=== PATIENT | female | born 1940 | race Caucasian/White ===

== ENCOUNTER 2019-05-23 06:35 | Day surgery (SDC) | payer MEDICARE, OTHER ==
[~2019-05-23] VITALS: Ht 152.4 cm; Wt 88.6 kg
[~2019-05-23 06:35] MED LIST: ASCO500 PO; ASPI81CH PO; CELE200 PO; COLPRO PO; Cordarone200 MG PO; DIGO.125 PO; DIGO.25; DILT120ERA PO; FERR325 PO; FOLI1 PO; FURO40 PO; LEVSOD50; LEVSOD75 PO; LISI20 PO; LORA10 PO; METO50 PO; METO50ER PO; N-ACETYL-L-CYS600 MG PO; NEBI10; NEBI5 PO; POTA10T PO; Prinivil10 MG; Probenecid-Col1 EACH PO; ROSU5 PO; SIMBRINZA 1%-0.28 ML; SIMBRINZA 1%-0.28 ML OP; SPIR25; SPIR25 PO; Synthroid50 MCG PO; TORSE20; TORSE20 PO; TRAV.004OP BOTHEYES; Travatan Z5 ML BOTHEYES; WARF3 PO; WARF4 PO; WARF5; ZESTRIL PO
[2019-05-23] MEDS ORDERED: AMLO10 PO (07:11)
[2019-05-23] MEDS ORDERED: LISI20 PO (07:11)
[2019-05-23] MEDS ORDERED: ALLO100 (07:12)
[2019-05-23] MEDS ORDERED: Lopressor 50 mg50 MG PO (07:12)
[2019-05-23] MEDS ORDERED: Celebrex200 MG PO (07:13)
--- NOTE | 2019-05-23 08:49 | NUR ---
CANCELED CARDIOVERSION DR. CRAMER IN TO SEE PT FOR PROCEDURE. DR. CRAMER CANCELED PROCEDURE-STATING: 'INR WAS LOW." IV DC'D WITH CANULA IN TACT. DISCHARGE PAPERWORK GONE OVER WITH PT AND FAMILY. PT AND FAMILY VERBALLY STATE THE UNDERSTANDING OF THE DISCHARGE EDCUATION AND DENIED ANY QUESTIONS AT THIS TIME. PT WHEELED OUT BY FAMILY. FOLLOW-UP APPOINTMENT SCHEDULED.
[2019-06-06] MEDS ORDERED: ATOR20 PO (14:55)
[2019-06-06] MEDS ORDERED: ATOR10 (14:55)
[2019-06-06] MEDS ORDERED: VITAMIN C500 M1 PO (14:56)
== END 2019-05-23 22:46 | disposition home or self-care (01) ==
LOC: MHTC 06:35
DX: I48.91 Unspecified atrial fibrillation (principal); R06.00 Dyspnea, unspecified; I38 Endocarditis, valve unspecified; R79.1 Abnormal coagulation profile; I10 Essential (primary) hypertension; E78.5 Hyperlipidemia, unspecified; E03.9 Hypothyroidism, unspecified; D50.9 Iron deficiency anemia, unspecified; Z53.09 Procedure and treatment not carried out because of other contraindication; Z88.0 Allergy status to penicillin; Z88.5 Allergy status to narcotic agent; Z95.2 Presence of prosthetic heart valve; Z79.899 Other long term (current) drug therapy; Z79.01 Long term (current) use of anticoagulants; Z95.0 Presence of cardiac pacemaker
CPT/HCPCS: 93005; 93010; J2250; J3010; J7030

== ENCOUNTER 2019-06-07 05:46 | Day surgery (SDC) | payer MEDICARE, OTHER ==
[~2019-06-07] VITALS: Ht 152.4 cm; Wt 88.6 kg
[~2019-06-07 05:46] MED LIST changes: +ALLO100; +AMLO10 PO; +ATOR10; +ATOR20 PO; +Celebrex200 MG PO; +Lopressor 50 mg50 MG PO; +VITAMIN C500 M1 PO
--- NOTE | 2019-06-07 09:11 | NUR ---
Discharge Pt remained A&Ox3 and denied any pain at this time. Post EKG complete. IV DC'D with canjennifer in tact. Discharge paperwork gone over with pt and family. Pt and family verbally stated the understanding of the discharge education and denied any questions at this time. pt wheeled out by family.
== END 2019-06-07 23:11 | disposition home or self-care (01) ==
LOC: MHTC 05:46
DX: I48.1 Persistent atrial fibrillation (principal); I10 Essential (primary) hypertension; E78.5 Hyperlipidemia, unspecified; E03.9 Hypothyroidism, unspecified; Z88.0 Allergy status to penicillin; Z88.5 Allergy status to narcotic agent; Z79.899 Other long term (current) drug therapy
CPT/HCPCS: 92960; 93005; 93010; 99152; J2250; J3010; J7030

== ENCOUNTER 2019-10-02 21:51 | Inpatient (IN) | payer MEDICARE, OTHER ==
[~2019-10-02] VITALS: Ht 154.9 cm; Wt 90.4 kg
[2019-10-02] MEDS ORDERED: ALLO100 (22:14)
[2019-10-02] MEDS ORDERED: LISI20 PO (22:15)
[2019-10-02] MEDS ORDERED: ATOR20 PO (22:15)
[2019-10-02] MEDS ORDERED: CELECOXIB200 MG PO (22:15)
[2019-10-02] MEDS ORDERED: EUTHYROX75 MC1 (22:15)
[2019-10-02] MEDS ORDERED: Travatan Z5 ML (22:15)
[2019-10-02] MEDS ORDERED: FUROSEMIDE40 MG PO (22:15)
[2019-10-02] MEDS ORDERED: WARF5 PO (22:15)
[2019-10-02 22:43] LABS: BASOPHILS ABSOLUTE AUTO 0.04 K/mm3 (0.00-0.23); BASOPHILS PERCENT AUTO 0 % (0-2); EOSINOPHILS ABSOLUTE AUTO 0.08 K/mm3 (0.00-0.68); EOSINOPHILS PERCENT AUTO 1 % (0-6); Hematocrit 27.2 % (33.0-51.0); Hemoglobin 8.5 g/dL (11.5-16.0); IMMATURE GRAN ABSOLUTE AUTO 0.09 K/mm3 (0.00-0.10); IMMATURE GRAN PERCENT AUTO 1 % (0-1); LYMPHOCYTES ABSOLUTE AUTO 1.61 K/mm3 (0.84-5.20); LYMPHOCYTES PERCENT AUTO 10 % (21-46); MONOCYTES ABSOLUTE AUTO 1.15 K/mm3 (0.16-1.47); MONOCYTES PERCENT AUTO 7 % (4-13); Mean Corpuscular HGB 35.1 pg (26.0-34.0); Mean Corpuscular HGB Conc 31.3 g/dL (31.5-36.5); Mean Corpuscular Volume 112 fL (80-100); Mean Platelet Volume 11.7 fL (9.1-12.4); NEUTROPHILS ABSOLUTE AUTO 13.65 K/mm3 (1.96-9.15); NEUTROPHILS PERCENT AUTO 82 % (41-73); Platelet Count 282 K/mm3 (150-400); RDW Coefficient Variation 16.4 % (11.7-14.2); RDW Standard Deviation 67.2 fL (35.1-46.3); Red Blood Cell Count 2.42 M/mm3 (3.80-5.20); White Blood Cell Count 16.62 K/mm3 (4.00-11.30)
[2019-10-02 22:56] LABS: Albumin, Blood 3.4 g/dL (3.4-5.0); Albumin/Globulin Ratio 0.7 (0.8-1.8); Bilirubin, Total 0.3 mg/dL (0.1-1.0); Bun/Creatinine Ratio 26.7 (12.0-20.0); Calcium, Blood 8.6 mg/dL (8.5-10.1); Creatinine, Blood 1.61 mg/dL (0.40-1.00); Globulin, Blood 4.6 g/dL (2.2-4.0); Potassium, Blood 4.3 mmol/L (3.5-5.5)
[2019-10-02 22:57] LABS: International Normalized Ratio 2.31; Prothrombin Time Results 23.6 Sec (9.7-11.5)
--- NOTE | 2019-10-03 01:32 | NUR ---
transfer report from Angela JOHNSON on female PT who has rt hip fx and rt middle lobe pneumonia. PT on coumadin for mitral valve replacement and has pacemeker. EKG showed paced rhythm. INR 2.31. DR seeing PT currently await admission.
[2019-10-03] MEDS ORDERED: METO25 PO (02:41)
[2019-10-03] MEDS ORDERED: ASCO500 PO (02:43)
[2019-10-03] MEDS ORDERED: Travatan Z5 ML RIGHTEYE (02:53)
[2019-10-03] MEDS ORDERED: SIMBRINZA 1%-0.28 ML RIGHTEYE (02:55)
[2019-10-03 05:04] LABS: Hematocrit 24.1 % (33.0-51.0); Hemoglobin 7.6 g/dL (11.5-16.0); Mean Corpuscular HGB 35.2 pg (26.0-34.0); Mean Corpuscular HGB Conc 31.5 g/dL (31.5-36.5); Mean Corpuscular Volume 112 fL (80-100); Mean Platelet Volume 11.3 fL (9.1-12.4); Platelet Count 245 K/mm3 (150-400); RDW Coefficient Variation 16.3 % (11.7-14.2); RDW Standard Deviation 66.6 fL (35.1-46.3); Red Blood Cell Count 2.16 M/mm3 (3.80-5.20); White Blood Cell Count 17.68 K/mm3 (4.00-11.30)
--- NOTE | 2019-10-03 05:15 | NUR ---
PT with cardiac hx, orthopedic hx, fell at home rt hip fx, ortho consult DR Hensley called but no answering service or paging service. Spouse & DTR seem to think the DRs spoke in ER. Will call when office open. PT has hx of MARILU with no home cpap or oxygen. Current rt middle lobe pneumonia. Resp panel sent, Sputum culture pending. 1 l o2 to keep sats greater than 90%. Spouse rooming in supportive. Complex medical hx with pacemaker and hx DVT rt le. Meds verified with PT and Family. Continues on bedrest with vilchis placed in ER. Full code status verified.
[2019-10-03 05:18] LABS: International Normalized Ratio 2.25
[2019-10-03 05:46] LABS: Albumin/Globulin Ratio 0.7 (0.8-1.8); Bilirubin, Total 0.3 mg/dL (0.1-1.0); Bun/Creatinine Ratio 26.6 (12.0-20.0); Calcium, Blood 8.1 mg/dL (8.5-10.1); Creatinine, Blood 1.43 mg/dL (0.40-1.00); Globulin, Blood 4.3 g/dL (2.2-4.0); Potassium, Blood 4.7 mmol/L (3.5-5.5); Total Protein, Blood 7.3 g/dL (6.4-8.2)
[2019-10-03 06:22] LABS: Adenovirus Not Detected (NOT DETECT); Bordetella pertussis Not Detected (NOT DETECT); Chlamydophila pneumoniae Not Detected (NOT DETECT); Coronavirus 229E Not Detected (NOT DETECT); Coronavirus HKU1 Not Detected (NOT DETECT); Coronavirus NL63 Not Detected (NOT DETECT); Coronavirus OC43 Not Detected (NOT DETECT); Human Metapneumovirus Not Detected (NOT DETECT); Human Rhinovirus/Enterovirus Not Detected (NOT DETECT); Influenza A Not Detected (NOT DETECT); Influenza A/2009-H1 Not Detected (NOT DETECT); Influenza A/H1 Not Detected (NOT DETECT); Influenza A/H3 Not Detected (NOT DETECT); Influenza B Not Detected (NOT DETECT); Mycoplasma pneumoniae Not Detected (NOT DETECT); Parainfluenza Virus 1 Not Detected (NOT DETECT); Parainfluenza Virus 2 Not Detected (NOT DETECT); Parainfluenza Virus 3 Not Detected (NOT DETECT); Parainfluenza Virus 4 Not Detected (NOT DETECT); Respiratory Syncytial Virus Not Detected (NOT DETECT)
--- NOTE | 2019-10-03 08:23 | NUR ---
patient gave permission to give care 10/03/19 0700
[2019-10-03 09:44] LABS: Percent Saturation 13.4 % (15.0-50.0)
[2019-10-03 10:57] LABS: Source, Urine Catheter
[2019-10-03 11:15] LABS: Appearance, Urine Clear (Clear); Bilirubin, Urine Neg (Neg); Blood, Urine Neg (Neg); Color, Urine Yellow (P-Yellow); Glucose Qualitative, Urine Neg (Neg); Ketones, Urine Neg (Neg); Leukocyte Esterase, Urine 2+ (Neg); Nitrite, Urine Neg (Neg); Protein, Urine Neg (Neg); Urobilinogen, Urine NORM (Normal)
[2019-10-03 11:23] LABS: Red Blood Cells, Urine 0-2 /hpf (0-2); White Blood Cells, Urine 25-50 /hpf (0-5)
[2019-10-03 11:24] LABS: Bacteria Few /hpf; Granular Casts 0-2 /lpf (0); Mucus Light (0-Heavy); Squamous Epithelial Cells Few /hpf (Few)
--- NOTE | 2019-10-03 15:11 | NUR ---
SHIFT SUMMARY PT AWAKE THIS AM, DURING SHIFT REPORT. FAMILY IN . PT ADMITTED FOR R HIP FX DURING THE NIGHT D/T FALL AT HOME. BRUISING TO BACK OF R ARM WELL. PER REPORT, PT ALSO WITH RML PNM. SPUTUM CX OBTAINED AND SENT AFTER REPORT. PT REQUESTED PAIN MEDICATION AT START OF SHIFT WELL. DR GUTIERREZ NOTIFIED; TRAMADOL ORDERED AND GIVEN PER EMAR. ORTHO CONSULT CALLED TO DR SHELL AFTER OFFICE OPEN, AT 0840. DOMINGUEZ CATH PLACED IN ER; UA OBTAINED AND SENT FOR PROTOCOL. DR GUTIERREZ IN TO SEE PT; NEW ORDERS RECEIVED. 1 UNIT PRBC'S TRANFUSED PER ORDERS. PT TOLERATED WELL. ATTEMPTED TO USE BEDPAN FOR BM; UNSUCCESSFUL, "JUST GAS". LOTS OF FAMILY IN AND OUT OF TODAY. PT WAITING FOR DR SHELL. CALL LT IN REACH.
--- NOTE | 2019-10-03 20:03 | NUR ---
CARLOS IS LAYING IN BED, LISTENING TO MUSIC AND TALKING WITH FRIEND. STATES PAIN IS AT 4/10 AT THIS TIME. STATES HIGHEST IT GETS IS 6/10, 4 IS TOLERABLE FOR HER. DENIES ANY NEED FOR PAIN MEDS AT THIS TIME. CATHETER PATENT AND DRAINING. LUNG SOUNDS HAVE SOME CRACKLES ON THE RIGHT SIDE. COUGH IS NON-PRODUCTIVE. ENCOURAGE HER TO COUGH AND DEEP BREATH. REMINDED HER TO CALL IF SHE NEEDS ANYTHING OR IF SHE IS IN PAIN. CALL LIGHT IN REACH.
[2019-10-04 02:01] LABS: International Normalized Ratio 2.42; Prothrombin Time Results 24.6 Sec (9.7-11.5)
--- NOTE | 2019-10-04 05:09 | NUR ---
SHIFT SUMMARY: CARLOS HAS HAD A GOOD NIGHT, SLEPT OFF AND ON THROUGHOUT THE SHIFT. PAIN HAS REMAINED AT A 4/10 WITH USE OF ULTRAM. CATHETER HAS REMAINED PATENT AND DRAINING. IV ANTIBOTICS GIVEN WITH NO PROBLEMS. NO NUMBNESS OR TINGLING NOTED, PULSES ARE ALL GOOD. SHE STILL CONTINUES TO HAVE CRACKLES IN THE RIGHT SIDE, AND A COUGH THAT IS NON-PRODUCTIVE. ENCOURAGE COUGH AND DEEP BREATHING. VS WNL. NO ACUTE CHANGES THIS SHIFT.
[2019-10-04 08:47] LABS: BASOPHILS ABSOLUTE AUTO 0.03 K/mm3 (0.00-0.23); BASOPHILS PERCENT AUTO 0 % (0-2); EOSINOPHILS ABSOLUTE AUTO 0.04 K/mm3 (0.00-0.68); EOSINOPHILS PERCENT AUTO 0 % (0-6); Hematocrit 26.5 % (33.0-51.0); Hemoglobin 8.5 g/dL (11.5-16.0); IMMATURE GRAN ABSOLUTE AUTO 0.31 K/mm3 (0.00-0.10); IMMATURE GRAN PERCENT AUTO 2 % (0-1); LYMPHOCYTES ABSOLUTE AUTO 1.36 K/mm3 (0.84-5.20); LYMPHOCYTES PERCENT AUTO 10 % (21-46); MONOCYTES ABSOLUTE AUTO 1.09 K/mm3 (0.16-1.47); MONOCYTES PERCENT AUTO 8 % (4-13); Mean Corpuscular HGB 33.5 pg (26.0-34.0); Mean Corpuscular HGB Conc 32.1 g/dL (31.5-36.5); NEUTROPHILS PERCENT AUTO 80 % (41-73); NRBC ABSOLUTE 0.02 K/mm3 (0.00-0.02); NRBC Auto 0.1 /100 WBC (0.0-0.2); Platelet Count 256 K/mm3 (150-400); RDW Standard Deviation 72.3 fL (35.1-46.3); Red Blood Cell Count 2.54 M/mm3 (3.80-5.20); White Blood Cell Count 14.33 K/mm3 (4.00-11.30)
[2019-10-04 08:51] LABS: Mean Corpuscular Volume 104 fL (80-100)
[2019-10-04 09:08] LABS: Bun/Creatinine Ratio 20.6 (12.0-20.0); Calcium, Blood 8.4 mg/dL (8.5-10.1); Creatinine, Blood 1.55 mg/dL (0.40-1.00); Potassium, Blood 4.2 mmol/L (3.5-5.5)
--- NOTE | 2019-10-04 18:54 | NUR ---
ALERT. ORIENTED. SURGERY FOR TOMORROW, SO NPO AFTER MIDNITE. MEDICATED ONCE FOR PAIN. DOMINGUEZ DRAINING. NO ACUTE CHANGES. WCTM
[2019-10-05 02:02] LABS: BASOPHILS ABSOLUTE AUTO 0.05 K/mm3 (0.00-0.23); BASOPHILS PERCENT AUTO 0 % (0-2); EOSINOPHILS ABSOLUTE AUTO 0.09 K/mm3 (0.00-0.68); EOSINOPHILS PERCENT AUTO 1 % (0-6); Hematocrit 25.8 % (33.0-51.0); Hemoglobin 8.6 g/dL (11.5-16.0); IMMATURE GRAN ABSOLUTE AUTO 0.62 K/mm3 (0.00-0.10); IMMATURE GRAN PERCENT AUTO 4 % (0-1); LYMPHOCYTES ABSOLUTE AUTO 1.56 K/mm3 (0.84-5.20); LYMPHOCYTES PERCENT AUTO 11 % (21-46); MONOCYTES PERCENT AUTO 8 % (4-13); Mean Corpuscular HGB 34.7 pg (26.0-34.0); Mean Corpuscular HGB Conc 33.3 g/dL (31.5-36.5); Mean Corpuscular Volume 104 fL (80-100); Mean Platelet Volume 11.3 fL (9.1-12.4); NEUTROPHILS PERCENT AUTO 76 % (41-73); NRBC ABSOLUTE 0.02 K/mm3 (0.00-0.02); NRBC Auto 0.1 /100 WBC (0.0-0.2); Platelet Count 270 K/mm3 (150-400); RDW Coefficient Variation 18.1 % (11.7-14.2); RDW Standard Deviation 69.6 fL (35.1-46.3); Red Blood Cell Count 2.48 M/mm3 (3.80-5.20); White Blood Cell Count 14.42 K/mm3 (4.00-11.30)
[2019-10-05 02:05] LABS: International Normalized Ratio 1.2; Prothrombin Time Results 12.7 Sec (9.7-11.5)
[2019-10-05 02:07] LABS: Bun/Creatinine Ratio 19.8 (12.0-20.0); Calcium, Blood 8.5 mg/dL (8.5-10.1); Creatinine, Blood 1.67 mg/dL (0.40-1.00); Potassium, Blood 3.9 mmol/L (3.5-5.5)
--- NOTE | 2019-10-05 05:04 | NUR ---
SHIFT SUMMARY ADMIT FOR RT HIP FX & PNEUMONIA. FULL CODE. HOPEFUL PLAN FOR ORIF TODAY W/DR KAPLAN. PT WAS NPO SINCE MIDNIGHT. VITAMIN K GIVEN YESTERDAY DUE TO INR OF 2.42. GOAL INR IS LESS THAN 1.5 FOR SURGERY TO PROCEED. A&O X4, RA, NON WT-BEARING. DOMINGUEZ IN PLACE. PACEMAKER INSTALLED. HEPARIN DOSE HELD FOR HOPEFUL SURGERY. HX: HTN, HYPERLIPIDEMIA, DVT, MITRAL VALVE REPLACED, CVA, HYPOTHYROID, DVT, AFIB. PT RESTED THROUGHOUT SHIFT, DENIED DISCOMFORT.
--- NOTE | 2019-10-05 11:26 | NUR ---
History, Chart, Medications and Allergies reviewed before start of procedure. Patient confirms NPO status and agrees with scheduled surgery.
--- NOTE | 2019-10-05 11:30 | NUR ---
Lungs clear T/O to Auscultation.
--- NOTE | 2019-10-05 15:18 | NUR ---
REPORT TO JAVIER MCDOWELL RN ON SECOND FLOOR. BELONGINGS TAKEN TO RM 214 BY MINO OLMSTEAD.
--- NOTE | 2019-10-05 16:34 | NUR ---
RECEIVED FROM PACU. PT ALERT AND ORIENTED. FOAM TAPE DRESSING X3 SITES TO RIGHT HIP AND THIGH. PT DENIES NUMBNESS OR TINGLING, WIGGLES TOES. TOES PINK AND WARM WITH IMMEDIATE CAP REFILL. PATIENT DENIES ANY PAIN AT THIS TIME. FAMILY AT BEDSIDE. BIOX 88% OXYGEN APPLIED AT 2 LITERS AND PATIENT INSTRUCTED ON TCDB
--- NOTE | 2019-10-05 17:50 | NUR ---
SUMMARY ULTRAM GIVEN FOR BACK PAIN, PT DENIES HIP PAIN. HIP DRESSINGS DRY AND INTACT. PT GERALD PO FOOD WITHOUT NAUSEA. MULTIPLE FAMILY AT BEDSIDE. PT CHEERFUL, COOPERATIVE
--- NOTE | 2019-10-05 18:08 | NUR ---
SUMMARY PT SLIGHTLY CONFUSED- BELIEVES I AM HER NEIGHBOR AND TELLS ME THERE IS A CAT IN HER ROOM. PT REORIENTS TO SURROUNDINGS, MULTIPLE FAMILY MEMBERS AT BEDSIDE
--- NOTE | 2019-10-05 20:11 | NUR ---
18 G IV TO LEFT HAND PATENT AND INFUSING. PT REPORTS IV WAS PLACED IN DAY SURGERY
[2019-10-06 04:49] LABS: BASOPHILS ABSOLUTE AUTO 0.04 K/mm3 (0.00-0.23); BASOPHILS PERCENT AUTO 0 % (0-2); EOSINOPHILS PERCENT AUTO 0 % (0-6); Hematocrit 24.9 % (33.0-51.0); Hemoglobin 8.1 g/dL (11.5-16.0); IMMATURE GRAN ABSOLUTE AUTO 0.42 K/mm3 (0.00-0.10); IMMATURE GRAN PERCENT AUTO 3 % (0-1); LYMPHOCYTES ABSOLUTE AUTO 0.89 K/mm3 (0.84-5.20); LYMPHOCYTES PERCENT AUTO 6 % (21-46); MONOCYTES PERCENT AUTO 6 % (4-13); Mean Corpuscular HGB 33.8 pg (26.0-34.0); Mean Corpuscular HGB Conc 32.5 g/dL (31.5-36.5); Mean Corpuscular Volume 104 fL (80-100); Mean Platelet Volume 11.6 fL (9.1-12.4); NEUTROPHILS ABSOLUTE AUTO 13.21 K/mm3 (1.96-9.15); NEUTROPHILS PERCENT AUTO 85 % (41-73); NRBC ABSOLUTE 0.02 K/mm3 (0.00-0.02); NRBC Auto 0.1 /100 WBC (0.0-0.2); Platelet Count 281 K/mm3 (150-400); RDW Coefficient Variation 17.1 % (11.7-14.2); RDW Standard Deviation 65.3 fL (35.1-46.3); White Blood Cell Count 15.56 K/mm3 (4.00-11.30)
--- NOTE | 2019-10-06 04:51 | NUR ---
SHIFT SUMMARY: CARLOS HAS BEEN RESTING INTERMITTENTLY DURING THE SHIFT. SHE REPORTS THAT THE PAIN IN HER HIP IS WELL CONTROLLED. SHE REPORTS THAT HER CHRONIC BACK PAIN IS CAUSING HER SOME DISCOMFORT AT THIS TIME. SHE HAS DENIED THE NEED FOR PAIN MEDICATION. SHE IS TOLERATING PO INTAKE WELL AT THIS TIME. IV PATENT, FLUIDS TKO. DRESSINGS TO HER RIGHT HIP C/D&I. DOMINGUEZ PATENT, DRAINING CLEAR YELLOW URINE. SHE IS ABLE TO MAKE HER NEEDS KNOWN. SHE IS LYING COMFORTABLY IN BED WITH THE CALL LIGHT IN REACH.
[2019-10-06 05:03] LABS: International Normalized Ratio 1.07; Prothrombin Time Results 11.4 Sec (9.7-11.5)
[2019-10-06 05:06] LABS: Bun/Creatinine Ratio 23.3 (12.0-20.0); Calcium, Blood 8.3 mg/dL (8.5-10.1); Creatinine, Blood 1.63 mg/dL (0.40-1.00); Potassium, Blood 4.2 mmol/L (3.5-5.5)
--- NOTE | 2019-10-06 15:25 | NUR ---
SHIFT SUMMARY PT A&OX3, PLEASANT & COOPERATIVE, FOLLOWS DIRECTIONS WELL. VSS, RA, I.S. & TCDB EXERCISES T/O SHIFT. POD1 R HIP PINNING, AQUACEL X2 CDI, CHANGED BY SURGEON, 1 PRESSURE DRESSING REMAINS - APPEAR CDI. PAIN MANAGED WITH TRAMADOL & TYLENOL. GERALD PO, DENIES N&V. AMB W/FWW & GB, 2 PP MAX ASSIST; PHYSICAL THERAPY GOT PT UP TO CHAIR, TO BSC & BACK TO BED. DOMINGUEZ PATENT & DRAINING YELLOW URINE, STAT LOCK ON, OFF FLOOR. BOWEL CARE COLACE, MIRALAX X2 GIVEN AND DULCOLAX AVAILABLE FOR BEDTIME FOR PT CONCERNS OF CONSTIPATION. WILL REPORT TO DILLON PFEIFFER RN.
[2019-10-07 04:51] LABS: BASOPHILS ABSOLUTE AUTO 0.03 K/mm3 (0.00-0.23); BASOPHILS PERCENT AUTO 0 % (0-2); EOSINOPHILS ABSOLUTE AUTO 0.07 K/mm3 (0.00-0.68); EOSINOPHILS PERCENT AUTO 1 % (0-6); Hemoglobin 7.4 g/dL (11.5-16.0); IMMATURE GRAN ABSOLUTE AUTO 0.75 K/mm3 (0.00-0.10); IMMATURE GRAN PERCENT AUTO 5 % (0-1); LYMPHOCYTES ABSOLUTE AUTO 1.86 K/mm3 (0.84-5.20); LYMPHOCYTES PERCENT AUTO 13 % (21-46); MONOCYTES ABSOLUTE AUTO 1.35 K/mm3 (0.16-1.47); MONOCYTES PERCENT AUTO 10 % (4-13); Mean Corpuscular HGB 33.3 pg (26.0-34.0); Mean Corpuscular HGB Conc 32.2 g/dL (31.5-36.5); Mean Corpuscular Volume 104 fL (80-100); Mean Platelet Volume 11.6 fL (9.1-12.4); NEUTROPHILS PERCENT AUTO 71 % (41-73); NRBC ABSOLUTE 0.07 K/mm3 (0.00-0.02); NRBC Auto 0.5 /100 WBC (0.0-0.2); Platelet Count 286 K/mm3 (150-400); RDW Coefficient Variation 16.9 % (11.7-14.2); RDW Standard Deviation 63.2 fL (35.1-46.3); Red Blood Cell Count 2.22 M/mm3 (3.80-5.20); White Blood Cell Count 13.86 K/mm3 (4.00-11.30)
[2019-10-07 05:04] LABS: International Normalized Ratio 1.15; Prothrombin Time Results 12.2 Sec (9.7-11.5)
[2019-10-07 05:13] LABS: Bun/Creatinine Ratio 27.8 (12.0-20.0); Calcium, Blood 8.3 mg/dL (8.5-10.1); Creatinine, Blood 1.94 mg/dL (0.40-1.00)
--- NOTE | 2019-10-07 06:39 | NUR ---
SHIFT SUMMARY: CARLOS HAS RESTED COMFORTABLY FOR MOST OF THE SHIFT. SHE REPORTS GOOD PAIN CONTROL WITH THE USE OF THE TRAMADOL. SHE IS TOLERATING PO INTAKE WELL. DOMINGUEZ PATENT, DRAINING CLEAR, YELLOW URINE. SHE IS ALERT AND ORIENTED. SHE ABLE TO MAKE HER NEEDS KNOWN. VSS. NO ACUTE CHANGES THIS SHIFT. HEMOGLOBIN THIS MORNING IS 7.4. DR. PRIETO NOTIFIED, ORDER GIVEN FOR ONE UNIT RBCs. NO N/V. SHE IS LYING COMFORTABLY IN BED WITH HER CALL LIGHT IN REACH.
[2019-10-07 14:39] LABS: Hematocrit 31.9 % (33.0-51.0); Hemoglobin 10.5 g/dL (11.5-16.0); Mean Corpuscular HGB 33.9 pg (26.0-34.0); Mean Corpuscular HGB Conc 32.9 g/dL (31.5-36.5); Mean Corpuscular Volume 103 fL (80-100); Mean Platelet Volume 11.5 fL (9.1-12.4); NRBC ABSOLUTE 0.09 K/mm3 (0.00-0.02); NRBC Auto 0.6 /100 WBC (0.0-0.2); Platelet Count 317 K/mm3 (150-400); RDW Coefficient Variation 16.8 % (11.7-14.2); RDW Standard Deviation 61.9 fL (35.1-46.3); White Blood Cell Count 16.36 K/mm3 (4.00-11.30)
[2019-10-07 14:57] LABS: BAND PERCENT MAN 5 % (0-8); BASOPHILS PERCENT MAN 0 % (0-2); EOSINOPHILS PERCENT MAN 0 % (0-6); LYMPHOCYTES ABSOLUTE MAN 2.45 K/mm3 (0.84-5.20); LYMPHOCYTES PERCENT MAN 15 % (21-46); METAMYELOCYTE ABSOLUTE MAN 0.49 K/mm3 (0.00-0.00); METAMYELOCYTE PERCENT MAN 3 % (0-0); MONOCYTES ABSOLUTE MAN 1.14 K/mm3 (0.16-1.47); MONOCYTES PERCENT MAN 7 % (4-13); NEUTROPHILS ABSOLUTE MAN 12.27 K/mm3 (1.96-9.15); SEG NEUTROPHILS PERCENT MAN 70 % (41-73); TOTAL CELLS COUNTED 100
--- NOTE | 2019-10-07 16:44 | NUR ---
SHIFT SUMMARY PT A&OX3, PLEASANT & COOPERATIVE, VSS. RECEIVED 1 UNIT PRBC'S. POD2 R HIP PINNING, 2 AQUACELS CHANGED TODAY. PAIN MANAGED WITH TRAMADOL AND TYLENOL. GERALD PO, DENIES N&V. AMB 2 PP MAX ASSIST W/FWW & GB; STAND PIVOT TO BSC & CHAIR; SAT IN CHAIR T/O SHIFT. WILL REPORT TO ONCJONATHAN PFEIFFER RN.
--- NOTE | 2019-10-08 04:18 | NUR ---
PATIENT HAS HAD MODERATE AMOUNT OF PAIN AT BEGINNING OF THE SHIFT. SHE HAS BEEN ASLEEP THE MAJORITY OF THE NIGHT. SHE WAKES EASILY FOR CARE. NO COMPLAINTS OF BACK OR KNEE PAIN THIS AM. RT HIP DRESSING REAMINS CLEAR, DRY, AND INPLACE OVER INCISION SITES. NO ACUTE CHANGES.
[2019-10-08 05:38] LABS: Hematocrit 28.7 % (33.0-51.0); Hemoglobin 9.6 g/dL (11.5-16.0); Mean Corpuscular HGB 34.2 pg (26.0-34.0); Mean Corpuscular HGB Conc 33.4 g/dL (31.5-36.5); Mean Corpuscular Volume 102 fL (80-100); Mean Platelet Volume 11.5 fL (9.1-12.4); NRBC ABSOLUTE 0.06 K/mm3 (0.00-0.02); NRBC Auto 0.4 /100 WBC (0.0-0.2); Platelet Count 309 K/mm3 (150-400); RDW Coefficient Variation 16.6 % (11.7-14.2); RDW Standard Deviation 62.5 fL (35.1-46.3); Red Blood Cell Count 2.81 M/mm3 (3.80-5.20)
[2019-10-08 05:54] LABS: International Normalized Ratio 1.11; Prothrombin Time Results 11.8 Sec (9.7-11.5)
[2019-10-08 05:59] LABS: BASOPHILS PERCENT MAN 0 % (0-2); EOSINOPHILS PERCENT MAN 0 % (0-6); LYMPHOCYTES ABSOLUTE MAN 2.59 K/mm3 (0.84-5.20); LYMPHOCYTES PERCENT MAN 16 % (21-46); METAMYELOCYTE ABSOLUTE MAN 0.48 K/mm3 (0.00-0.00); METAMYELOCYTE PERCENT MAN 3 % (0-0); MONOCYTES ABSOLUTE MAN 1.29 K/mm3 (0.16-1.47); MONOCYTES PERCENT MAN 8 % (4-13); NEUTROPHILS ABSOLUTE MAN 11.82 K/mm3 (1.96-9.15); SEG NEUTROPHILS PERCENT MAN 73 % (41-73); TOTAL CELLS COUNTED 100
[2019-10-08 06:01] LABS: Calcium, Blood 8.5 mg/dL (8.5-10.1); Creatinine, Blood 1.8 mg/dL (0.40-1.00)
[2019-10-08] MEDS ORDERED: ONDA4ODT MM (10:22)
[2019-10-08] MEDS ORDERED: MIRALAX17 GM PO (10:23)
[2019-10-08] MEDS ORDERED: PROBIOTIC1 EACH PO (10:24)
[2019-10-08] MEDS ORDERED: ENOXAPARIN100 MG/1 M (10:32)
[2019-10-08] MEDS ORDERED: Doxycycline Mo100 M1 PO (10:33)
[2019-10-08] MEDS ORDERED: HYDROCODON-ACE1 EAC4 PO (10:33)
[2019-10-08] MEDS ORDERED: Colace100 MG PO (10:35)
[2019-10-08] MEDS ORDERED: BISA5EC PO (10:36)
[2019-10-08] MEDS ORDERED: ACET325 PO (10:37)
--- NOTE | 2019-10-08 14:10 | NUR ---
STRAIGHT CATH BLADDER SCAN SHOWED VOLUME OF URINE >300 ML. STRAIGHT CATH WAS REQUIRED TO EMPTY PT'S BLADDER AND 500ML OF URINE WAS EMPTIED. PT DID ATTEMPT TO VOID PRIOR TO STRAIGHT CATH ATTEMPT AND WAS UNSUCCESSFUL
--- NOTE | 2019-10-08 14:11 | NUR ---
ATTEMPT TO CALL REPORT TO [facility] MADE AT 1400, AWAITING CALL BACK. SPOKE WITH VIC AT [facility] AND NOTIFIED HER THAT THE PT WOULD BE LEAVING AT 1430.
--- NOTE | 2019-10-08 14:22 | NUR ---
REPORT CALLED TO JH AT [facility]. AWAITING TRANSPORT FOR DISCHARGE TO [facility].
--- NOTE | 2019-10-08 14:38 | NUR ---
DISCHARGE PT ASSISTED INTO WHEELCHAIR BY NIKKI LEE. DISCHARGE ORDERS, DRESSINGS, AND SCRIPTS SENT WITH PT TO [facility].
--- NOTE | 2019-10-08 16:29 | NUR ---
10/08/19 1629 Sary Maddox VERIFICATIONS, AUDITS.
== END 2019-10-08 14:55 | DRG 480 ==
LOC: ER 21:51 → MEDS 21:52 → ER 21:52 → MEDS 21:52 → SURS 10-03 01:46 → MEDS 10-03 01:47 → SURS 10-05 14:05
PROVIDERS: Emergency Medicine; Family Medicine; Internal Medicine; Orthopaedic Surgery; ADMIT Internal Medicine
PROC: 30233N1 Transfusion of Nonautologous Red Blood Cells into Peripheral Vein, Percutaneous Approach (ICD-10-PCS; 2019-10-03)
PROC: 0QH634Z Insertion of Internal Fixation Device into Right Upper Femur, Percutaneous Approach (ICD-10-PCS; principal; 2019-10-05 12:30)
DX: S72.141A Displaced intertrochanteric fracture of right femur, initial encounter for closed fracture (principal); J18.1 Lobar pneumonia, unspecified organism; D62 Acute posthemorrhagic anemia; W19.XXXA Unspecified fall, initial encounter; I48.91 Unspecified atrial fibrillation; Z86.718 Personal history of other venous thrombosis and embolism; Z86.73 Personal history of transient ischemic attack (TIA), and cerebral infarction without residual deficits; I10 Essential (primary) hypertension; E78.00 Pure hypercholesterolemia, unspecified; E03.9 Hypothyroidism, unspecified; E78.5 Hyperlipidemia, unspecified
CPT/HCPCS: 0099U; 36415; 36430; 51702; 71045; 73502; 80048; 80053; 81001; 82728; 83540; 83550; 83880; 85025; 85027; 85610; 85730; 86850; 86900; 86901; 86923; 87070; 87077; 87086; 87186; 87205; 93005; 93010; 96361; 96365; 96375; 96376; 97112; 97162; 97166; 97530; 97535; 99285-25; A9270; C1713; C1769; J0690; J0696; J1100; J1644; J1956; J2370; J2405; J2704; J3010; J3430; J7030; J7050; J7120; P9016

== ENCOUNTER 2019-10-19 11:22 | Inpatient (IN) | payer MEDICARE, OTHER ==
[~2019-10-19] VITALS: Ht 152.4 cm; Wt 92.1 kg
[~2019-10-19 11:22] MED LIST changes: +ACET325 PO; +ALLO100 PO; +ATOR10 PO; +BISA5EC PO; +Colace100 MG PO; +Doxycycline Mo100 M1 PO; +ENOXAPARIN100 MG/1 M SC; +EUTHYROX75 MC1 PO; +FUROSEMIDE40 MG PO; +HYDROCODON-ACE1 EAC4 PO; +METO25 PO; +MIRALAX17 GM PO; +ONDA4ODT MM; +PROBIOTIC1 EACH PO; +SIMBRINZA 1%-0.28 ML RIGHTEYE; +Travatan Z5 ML; +Travatan Z5 ML RIGHTEYE; +WARF5 PO
[2019-10-19 12:37] LABS: BASOPHILS ABSOLUTE AUTO 0.03 K/mm3 (0.00-0.23); BASOPHILS PERCENT AUTO 0 % (0-2); EOSINOPHILS ABSOLUTE AUTO 0.01 K/mm3 (0.00-0.68); EOSINOPHILS PERCENT AUTO 0 % (0-6); IMMATURE GRAN ABSOLUTE AUTO 0.13 K/mm3 (0.00-0.10); IMMATURE GRAN PERCENT AUTO 1 % (0-1); LYMPHOCYTES ABSOLUTE AUTO 1.06 K/mm3 (0.84-5.20); LYMPHOCYTES PERCENT AUTO 6 % (21-46); MONOCYTES ABSOLUTE AUTO 1.54 K/mm3 (0.16-1.47); MONOCYTES PERCENT AUTO 9 % (4-13); Mean Corpuscular HGB 33.8 pg (26.0-34.0); Mean Corpuscular HGB Conc 31.8 g/dL (31.5-36.5); Mean Platelet Volume 11.7 fL (9.1-12.4); NEUTROPHILS ABSOLUTE AUTO 15.12 K/mm3 (1.96-9.15); NEUTROPHILS PERCENT AUTO 85 % (41-73); NRBC ABSOLUTE 0.05 K/mm3 (0.00-0.02); NRBC Auto 0.3 /100 WBC (0.0-0.2); Platelet Count 360 K/mm3 (150-400); RDW Coefficient Variation 16.8 % (11.7-14.2); Red Blood Cell Count 1.39 M/mm3 (3.80-5.20); White Blood Cell Count 17.89 K/mm3 (4.00-11.30)
[2019-10-19 12:43] LABS: Mean Corpuscular Volume 107 fL (80-100)
[2019-10-19 12:44] LABS: Hematocrit 14.8 % (33.0-51.0); Hemoglobin 4.7 g/dL (11.5-16.0)
[2019-10-19 12:58] LABS: Albumin, Blood 2.6 g/dL (3.4-5.0); Albumin/Globulin Ratio 0.7 (0.8-1.8); Bilirubin, Total 0.5 mg/dL (0.1-1.0); Calcium, Blood 8.6 mg/dL (8.5-10.1); Creatinine, Blood 1.76 mg/dL (0.40-1.00); Globulin, Blood 3.9 g/dL (2.2-4.0); Potassium, Blood 4.6 mmol/L (3.5-5.5); Total Protein, Blood 6.5 g/dL (6.4-8.2)
[2019-10-19 13:00] LABS: Troponin I 0.018 ng/mL (0.000-0.040)
[2019-10-19] MEDS ORDERED: BACL10 PO (13:23)
[2019-10-19 14:41] LABS: International Normalized Ratio 4.88; Prothrombin Time Results 47.7 Sec (9.7-11.5)
[2019-10-19] MEDS ORDERED: CELECOXIB200 MG PO (14:50)
[2019-10-19] MEDS ORDERED: LOVENOX100 MG/1 M SC (15:11)
[2019-10-19 15:20] LABS: IMMATURE RETIC FRACTION 33.8 % (2.3-16.0); RETIC HGB EQUIVALENT 35.8 pg (28.20-36.60); RETICULOCYTE COUNT PERCENT 2.92 % (0.50-2.50)
[2019-10-19 15:38] LABS: Percent Saturation 12.1 % (15.0-50.0)
--- NOTE | 2019-10-19 19:34 | NUR ---
SHIFT SUMMARY: PT ARRIVED FROM ED AT 1700 VIA GURNEY. PLACED ON MONITOR AND O2 @ 2 L/MIN NC. A&O X 3, WEAK AND PALE. FIRST UNIT OF PRBC TRANSFUSION COMPLETED ON ARRIVAL BY ED RN. SECOND UNIT PRBC STARTED AT ~1730, TOLERATING WELL W/O SIDE EFFECTS. PAIN IN R HIP 410, STATED THIS IS TOLERABLE FOR HER, DENIES NEEDING PAIN MEDICATION. POWERGLIDE PLACED IN R ARM BY James NOWAK RN. PT EDUCATED ABOUT POSSIBLE SIDE EFFECTS OF TRANSFUSION, VERBALIZED UNDERSTANDING. FAMILY AT BEDSIDE AT 1750. CODE STATUS CLARIFIED WITH PATIENT-DNI, CPR, SHOCKS, AND MEDICATIONS OK. EDUCATED PATIENT AND FAMILY ABOUT HOW LOVENOX AND WARFARIN CAN CAUSE BLEEDING AND A DROP IN H/H, ALSO THAT PT HAS IRON DEFICIENCY. R HIP AND R LATERAL KNEE COVERED BY DRESSINGS, JESÚS INTACT. DOMINGUEZ DRAINING YELLOW URINE. PT EDUCATED ABOUT USE OF CALL LIGHT.
[2019-10-19 20:56] LABS: Source, Urine Clean Catch
--- NOTE | 2019-10-19 21:00 | NUR ---
ASSUMPTION OF CARE ASSUMED CARE OF PT @ 1910, PT AWAKE IN BED, INTERACTING WITH FAMILY, ORIENTED TO SELF, PLACE, EVENT AND FOLLOWING DIRECTIONS. O2 SATURATIONS 99% ON 4L PER NC, DECREASED TO 2L. MONITOR SHOWS PACED RHYTHM, PT HYPOTENSIVE, 2 UNIT PRBC INFUSING. LIMITED ROM TO R HIP AND KNEE, HIP FX AND SURG TWO WEEKS AGO, CURENTLY RESIDING AT SNF FOR REHABILITATION POST HIP REPLACEMENT. PT DENIES PAIN, SOB, OR DIZZINESS. DOMINGUEZ IN PLACE.
[2019-10-19 21:07] LABS: Appearance, Urine Hazy (Clear); Bilirubin, Urine Neg (Neg); Blood, Urine 2+ (Neg); Color, Urine Yellow (P-Yellow); Glucose Qualitative, Urine Neg (Neg); Ketones, Urine Neg (Neg); Leukocyte Esterase, Urine 3+ (Neg); Nitrite, Urine Neg (Neg); Protein, Urine Neg (Neg); Specific Gravity, Urine 1.015 (1.003-1.022); Urobilinogen, Urine NORM (Normal)
[2019-10-19 21:10] LABS: Bacteria Few /hpf; Red Blood Cells, Urine 0-2 /hpf (0-2); Squamous Epithelial Cells Rare /hpf (Few); White Blood Cells, Urine 50-100 /hpf (0-5)
--- NOTE | 2019-10-19 22:00 | NUR ---
FEVER PRIOR TO FFP ADMINISTRATION TEMP OF 101.6, CALL PLACED TO JOVANA GOLD BOTTLE BOOTH ATTENDANT. ORDERS FOR 25MG IV BENADRYL, 650 PO TYLENOL, AND 40 MG IV PEPCID. BLOOD TUBING SENT TO BLOOD BANK FOR TESTING. CONTINUE WITH FFP INFUSION PER PROVIDER. TRANSFUSION REACTION PROTOCOL INITIATED.
[2019-10-19 22:28] LABS: BASOPHILS ABSOLUTE AUTO 0.01 K/mm3 (0.00-0.23); BASOPHILS PERCENT AUTO 0 % (0-2); EOSINOPHILS ABSOLUTE AUTO 0.01 K/mm3 (0.00-0.68); EOSINOPHILS PERCENT AUTO 0 % (0-6); IMMATURE GRAN ABSOLUTE AUTO 0.17 K/mm3 (0.00-0.10); IMMATURE GRAN PERCENT AUTO 1 % (0-1); LYMPHOCYTES ABSOLUTE AUTO 1.14 K/mm3 (0.84-5.20); LYMPHOCYTES PERCENT AUTO 8 % (21-46); MONOCYTES PERCENT AUTO 9 % (4-13); Mean Corpuscular HGB 31.5 pg (26.0-34.0); Mean Corpuscular HGB Conc 32.4 g/dL (31.5-36.5); Mean Platelet Volume 11.4 fL (9.1-12.4); NEUTROPHILS ABSOLUTE AUTO 11.74 K/mm3 (1.96-9.15); NEUTROPHILS PERCENT AUTO 82 % (41-73); NRBC ABSOLUTE 0.11 K/mm3 (0.00-0.02); NRBC Auto 0.8 /100 WBC (0.0-0.2); Platelet Count 297 K/mm3 (150-400); RDW Coefficient Variation 18.3 % (11.7-14.2); RDW Standard Deviation 61.1 fL (35.1-46.3); Red Blood Cell Count 1.84 M/mm3 (3.80-5.20); White Blood Cell Count 14.37 K/mm3 (4.00-11.30)
--- NOTE | 2019-10-19 22:30 | NUR ---
DR KEENE IN TO SEE PT, ORDERS FOR CLEAR LIQUIDS UNTIL MIDNIGHT, WATER OKAY FROM [phone] AND NPO AFTER 0600 FOR MORNING PROCEDURE. TREMORS NOTED TO BUE WHILE DR KEENE IN ROOM, PER DAY SHIFT REPORT PT HAD THESE TREMORS EARLIER IN THE DAY BUT HAD SUBSIDED BY SHIFT CHANGE. DR KEENE DC'D REGLAN TREMORS ARE POSSIBLY A REACTION TO THIS MEDICATION AND PT DENIES NAUSEA SINCE ADMIT.
[2019-10-19 22:44] LABS: Mean Corpuscular Volume 97 fL (80-100)
[2019-10-19 22:45] LABS: Hematocrit 17.9 % (33.0-51.0); Hemoglobin 5.8 g/dL (11.5-16.0)
[2019-10-20 00:40] LABS: International Normalized Ratio 1.33
[2019-10-20 04:03] LABS: BASOPHILS ABSOLUTE AUTO 0.03 K/mm3 (0.00-0.23); BASOPHILS PERCENT AUTO 0 % (0-2); EOSINOPHILS ABSOLUTE AUTO 0.03 K/mm3 (0.00-0.68); EOSINOPHILS PERCENT AUTO 0 % (0-6); Hematocrit 20.5 % (33.0-51.0); Hemoglobin 6.8 g/dL (11.5-16.0); IMMATURE GRAN ABSOLUTE AUTO 0.18 K/mm3 (0.00-0.10); IMMATURE GRAN PERCENT AUTO 1 % (0-1); LYMPHOCYTES ABSOLUTE AUTO 1.53 K/mm3 (0.84-5.20); LYMPHOCYTES PERCENT AUTO 11 % (21-46); MONOCYTES ABSOLUTE AUTO 1.29 K/mm3 (0.16-1.47); MONOCYTES PERCENT AUTO 9 % (4-13); Mean Corpuscular HGB 31.3 pg (26.0-34.0); Mean Corpuscular HGB Conc 33.2 g/dL (31.5-36.5); Mean Corpuscular Volume 95 fL (80-100); Mean Platelet Volume 11.7 fL (9.1-12.4); NEUTROPHILS ABSOLUTE AUTO 11.01 K/mm3 (1.96-9.15); NEUTROPHILS PERCENT AUTO 78 % (41-73); NRBC ABSOLUTE 0.11 K/mm3 (0.00-0.02); NRBC Auto 0.8 /100 WBC (0.0-0.2); Platelet Count 285 K/mm3 (150-400); RDW Coefficient Variation 18.6 % (11.7-14.2); RDW Standard Deviation 59.3 fL (35.1-46.3); Red Blood Cell Count 2.17 M/mm3 (3.80-5.20); White Blood Cell Count 14.07 K/mm3 (4.00-11.30)
[2019-10-20 04:17] LABS: International Normalized Ratio 1.17; Prothrombin Time Results 12.4 Sec (9.7-11.5)
[2019-10-20 04:24] LABS: Albumin, Blood 2.6 g/dL (3.4-5.0); Albumin/Globulin Ratio 0.7 (0.8-1.8); Bilirubin, Total 1.4 mg/dL (0.1-1.0); Bun/Creatinine Ratio 48.1 (12.0-20.0); Calcium, Blood 8.5 mg/dL (8.5-10.1); Creatinine, Blood 1.58 mg/dL (0.40-1.00); Globulin, Blood 3.5 g/dL (2.2-4.0); Magnesium, Blood 2.4 mg/dL (1.6-2.4); Potassium, Blood 4.4 mmol/L (3.5-5.5); Total Protein, Blood 6.1 g/dL (6.4-8.2)
--- NOTE | 2019-10-20 05:49 | NUR ---
SHIFT SUMMARY PT RESTED WELL THIS SHIFT, AROUSES TO VERBAL STIMULI, REMAINS ORIENTED AND FOLLOWING DIRECTIONS. PT ON 1L O2 PER NC, BREIF PERIODS OF DEC OXYGEN TO LOW 80'S NOTED WITH QUICK RECOVERY. MONITOR SHOWS PACED RHYTHM, BP STABLE, 4TH UNIT OF PRBC CURRENTLY INFUSING. TMAX THIS SHIFT OF 102.0, PT CURRENTLY AFEBRILE, NO FURTHER SIGNS OF BLOOD TRANSFUSION REACTION PT DENIES SOB, NO RESP DISTRESS, URINE REMAINS YELLOW, ABD SOFT AND NONTENDER. PT HAS BEEN NPO SINCE 2299, PLAN FOR PROCEDURE WITH DR KENEE THIS AM. TREMOS TO BUE DECREASED.
--- NOTE | 2019-10-20 07:00 | NUR ---
ASSUMED CARE OF PT. STATED SHE SLEPT ADEQUATELY O/N DESPITE TRANSFUSIONS. PLAN IS FOR EGD THIS MORNING TO R/O GIB.
--- NOTE | 2019-10-20 08:34 | NUR ---
10/20/19 0834 Stephanie Harper History, Chart, Medications and Allergies reviewed before start of procedure.PATIENT DETERMINED TO BE ASA APPROPRIATE FOR PROPOFOL SEDATION PRIOR TO START OF PROCEDURE BY .MONITOR INTACT WITH CONTINUOUS PULSE OXIMETRY AND INTERMITTENT BP.3-LEAD EKG REVIEWED WITH PHYSICIAN PRIOR TO START OF PROCEDURE.O2 VIA N/C INTACT THROUGHOUT SEDATION/PROCEDURE.
[2019-10-20 09:25] LABS: Hematocrit 23.7 % (33.0-51.0); Hemoglobin 8.1 g/dL (11.5-16.0)
--- NOTE | 2019-10-20 12:00 | NUR ---
DR. TALBERT AT BEDSIDE FOR ASSESSMENT. ORDERED ADAT, CT AND BLE DOPPLER PENDING. POSSIBLE STATUS CHANGE DEPENDING ON CT RESULTS.
--- NOTE | 2019-10-20 12:47 | NUR ---
PT TO CT SCAN AT 1225 VIA HER BED WITH TRANSPORTER AND THIS AUTHOR. CT COMPLETED, PT BACK TO ROOM AT 1245. TOLERATED WELL.
--- NOTE | 2019-10-20 13:50 | NUR ---
U/S OF BLE COMPLETED.
--- NOTE | 2019-10-20 18:45 | NUR ---
SHIFT SUMMARY: A&O X 3, PLEASANT. MEDICATED FOR PAIN X 1 WITH FENTANYL WITH GOOD EFFECT. RECTAL TUBE PLACED AND GO LYTELY STARTED AT 1830. EDUCATED PT AND GRANDDAUGHTER ABOUT PROCEDURE FOR RECTAL BAG AND TAKING GOLYTELY, AND PT VERBALIZED UNDERSTANDING. CARDIAC RHYTHM PACED, 1+ PERIPHERAL EDEMA. LUNGS CLEAR, DIM IN BASES. PLACED ON O2 @ 1 L/MIN NC FOR PERIODS OF SHALLOW MOUTH BREATHING AND DESATURATION. DOMINGUEZ DRAINING ADEQUATE URINE. STARTED ON ABX FOR PRESUMED UTI. TOLERATING CLEAR LIQ DIET IN PREP FOR COLONOSCOPY TOMORROW.
--- NOTE | 2019-10-20 19:02 | NUR ---
ASSUMED CARE OF PT, BEDSIDE REPORT RECEIVED. PT IS RESTING QUIETLY RECLINING IN BED WITH VISITORS AT BEDSIDE. SHE IS SPEAKING IN FULL SENTENCES WITHOUT VISIBLE INCREASED WORK OF BREATHING. SATS ARE MAINTAINING WITH OXYGEN VIA NASAL CANNULA AT 2 L/MIN, LUNGS CLEAR WITH DIM BASES BILAT. PT DENIES PAIN, DENIES CP/PRESSURE, DENIES SOB/DYSPNEA. IS NOTED TO BE DRINKING GOLYTELY AT THIS TIME, LESS THAN 1/8 CONSUMED FROM GALLON CONTAINER AT BEDSIDE. PT CONTINUES IN PACED RHYTHM, BORDERLINE BP IS NOTED, WILL MONITOR, PULSES FULL X 4 EXTREMITIES, COLOR IS IMPROVED PER DAY SHIFT RN. ABD MILDLY DISTENDED, ACTIVE BOWEL TONES NOTED, TENDER TO PALP, RECTAL TUBE IN PLACE WITHOUT DRAINAGE PRESENT IN TUBING OR BAG, WILL MONITOR. DOMINGUEZ CATH IN PLACE PATENT AND DRAINING AT THIS TIME.
--- NOTE | 2019-10-21 00:51 | NUR ---
ASSUMPTION OF CARE: CARE TAKEN OVER FROM ELIZABETH JAMES. PT UP IN BED, A&O, WITH DAUGHTER AT BEDSIDE. SBP IN THE 130S, HR IN THE 80S, PACED. LUNG SOUNDS CLEAR AND DIM IN BASES. SPO2 >90% ON 2L NC. PT IS S/P R HIP SURGERY. BANDAGE TO R HIP WITH VISIBLE HEMATOMA. HEMATOMA TO R CALF WELL. BANDAGE IN PLACE TO R KNEE. PT ALSO HAS BRUISING TO ABD. BT PRESENT X 4. PT IS CURRENTLY DRINKING GOLYTELY IN PREP FOR COLONOSCOPY IN AM. DOMINGUEZ IN PLACE DRAINING YELLOW URINE. 20G IN LAC, PG IN KENDRICK. WILL CONTINUE TO MONITOR.
[2019-10-21 03:46] LABS: BASOPHILS ABSOLUTE AUTO 0.03 K/mm3 (0.00-0.23); BASOPHILS PERCENT AUTO 0 % (0-2); EOSINOPHILS ABSOLUTE AUTO 0.02 K/mm3 (0.00-0.68); EOSINOPHILS PERCENT AUTO 0 % (0-6); Hematocrit 33.3 % (33.0-51.0); IMMATURE GRAN ABSOLUTE AUTO 0.19 K/mm3 (0.00-0.10); IMMATURE GRAN PERCENT AUTO 2 % (0-1); LYMPHOCYTES ABSOLUTE AUTO 0.79 K/mm3 (0.84-5.20); LYMPHOCYTES PERCENT AUTO 7 % (21-46); MONOCYTES ABSOLUTE AUTO 0.66 K/mm3 (0.16-1.47); MONOCYTES PERCENT AUTO 6 % (4-13); Mean Corpuscular HGB 30.9 pg (26.0-34.0); Mean Corpuscular Volume 94 fL (80-100); Mean Platelet Volume 11.5 fL (9.1-12.4); NEUTROPHILS ABSOLUTE AUTO 9.54 K/mm3 (1.96-9.15); NEUTROPHILS PERCENT AUTO 85 % (41-73); NRBC ABSOLUTE 0.11 K/mm3 (0.00-0.02); Platelet Count 267 K/mm3 (150-400); RDW Coefficient Variation 19.7 % (11.7-14.2); RDW Standard Deviation 62.4 fL (35.1-46.3); Red Blood Cell Count 3.56 M/mm3 (3.80-5.20); White Blood Cell Count 11.23 K/mm3 (4.00-11.30)
[2019-10-21 04:01] LABS: Albumin, Blood 2.4 g/dL (3.4-5.0); Anion Gap 6 mmol/L (6-16); Blood Urea Nitrogen 52 mg/dL (8-24); Bun/Creatinine Ratio 40.3 (12.0-20.0); CO2, Blood 27 mmol/L (21-32); Calcium, Blood 8.2 mg/dL (8.5-10.1); Chloride, Blood 108 mmol/L (98-108); Creatinine, Blood 1.29 mg/dL (0.40-1.00); Glomerular Filtration Rate 42 (60-); Glucose, Blood 112 mg/dL (70-99); Phosphorus, Blood 3.6 mg/dL (2.5-4.9); Potassium, Blood 3.8 mmol/L (3.5-5.5); Sodium, Blood 141 mmol/L (136-145)
--- NOTE | 2019-10-21 04:42 | NUR ---
ENTERED ROOM AND PT STATED SHE FELT THOUGH SHE HAD MADE A "MESS OF HERSELF". PT HAD LARGE LIQUID BM. RECTAL TUBE INSERTED. ENCOURAGED PT TO CONTINUE TO DRINK GOLYTLEY/GATORADE. SHE STATED THAT SINCE ADDING GATORADE TO GOLYTELY SHE IS BETTER ABLE TO TOLERATE THE TASTE.
--- NOTE | 2019-10-21 06:27 | NUR ---
PT CURRENTLY RESTING. STATES SHE FEELS SLEEPY AND HAS ONLY GOTTEN A FEW HRS OF SLEEP. IS ABLE TO WAKE TO NAME RECTAL TUBE REMAINS IN PLACE HOWEVER HAVE NOT SEEN ANY OUTPUT. PT DID BETTER DRINKING GOLYTELY THIS AM. PT IS GOING FOR A COLONOSCOPY THIS AM. PT STATES HER PAIN THIS AM IS MUCH BETTER AND THE BEST ITS BEEN SINCE REPOSITIONING AT 0400. PT DOES REPORT SOME MINOR HIP PAIN. DRESSING TO HIP C/D/I. PT VITALS REMAIN STABLE. SHE DOES DESAT AT TIMES WITH SLEEP OR WHEN SHES TAKING A DRINK OF GOLYTELY. SATS RETURN TO NORMAL QUICKLY, HOWEVER. WILL PASS REPORT TO NEXT SHIFT
--- NOTE | 2019-10-21 09:53 | NUR ---
JESÚS REMOVED FROM R HIP, R LATERAL THIGH, AND R LATERAL KNEE WITHOUT INCIDENT. COVERED SITES WITH NON ADHERENT GAUZE DRESSINGS AND PAPER TAPE. PT TOLERATED WELL.
--- NOTE | 2019-10-21 19:13 | NUR ---
10/21/191912 Stephanie Harper CASE IN ICU 15. PT HYPOTENSIVE SHORTLY AFTER START OF CASE. EPHEDRINE GIVEN AND ADDITIONAL VERSED IN PLACE OF PROPOFOL. History, Chart, Medications and Allergies reviewed before start of procedure.PATIENT DETERMINED TO BE ASA APPROPRIATE FOR PROPOFOL SEDATION PRIOR TO START OF PROCEDURE BY .MONITOR INTACT WITH CONTINUOUS PULSE OXIMETRY AND INTERMITTENT BP.3-LEAD EKG REVIEWED WITH PHYSICIAN PRIOR TO START OF PROCEDURE.O2 VIA N/C INTACT THROUGHOUT SEDATION/PROCEDURE.
--- NOTE | 2019-10-21 19:15 | NUR ---
ASSUMED CARE OF PT, REPORT RECEIVED, DAY SURGERY AT BEDSIDE, COLONOSCOPY PROCEDURE IN PROGRESS AT THIS TIME.
--- NOTE | 2019-10-21 19:30 | NUR ---
SHIFT SUMMARY: PT TAKING GO LYTELY, STOOL STILL NOT CLEAR. PACED RHYTHM, 2+ PITTING EDEMA IN RLE. SURGICAL SITES COVERED WITH GAUZE DRESSINGS, CD&I. LUNGS CTAB, NO O2 NEEDED TODAY, SATS > 95%. C/O MILD PAIN IN RECTUM (FROM FLEXI SEAL) AND R HIP; MEDICATED PER EMAR WITH GOOD RELIEF. FLEXI SEAL REMOVED TO ALLOW STOOL TO PAS EASILY AND FOR PT COMFORT. STARTED SECOND BOTTLE GO LYTELY AT 1330, STOOL CLEAR AT 1615. DR. KEENE NOTIFIED BY PHONE, COLONOSCOPY SCHEDULES FOR 1830 TONIGHT. FAMILY AT BEDSIDE ALL DAY. PLAN IS TO TRANSFER TO MEDICAL OR SURGICAL FLOOR AFTER PROCEDURE.
--- NOTE | 2019-10-21 20:30 | NUR ---
COLONOSCOPY PROCEDURE COMPLETE, PT IS RESTING QUIETLY RECLINING IN BED WITH DAUGHTER AT BEDSIDE. PT DENIES N/V, DENIES CP/PRESSURE, DENIES SOB/DYSPNEA, STATES THAT SHE DOES HAVE 4/10 PAIN IN HER BACK BUT THAT SHE FREQUENTLY HAS THIS PAIN AND RATES TOLERABLE/NEAR BASELINE, SHE DENIES NEED FOR INTERVENTIONS, BLANKETS FROM WARMER PROVIDED. SHE IS SPEAKING IN FULL SENTENCES, SATS ARE MAINTAINING ON ROOM AIR, NO VISIBLE INCREASED WORK OF BREATHING AT THIS TIME. CONTINUES IN PACED RHYTHM, PRESSURE IS MAINTAINING AT THIS TIME, EPHEDRINE 25 MG WAS ADMINISTERED DURING COLONOSCOPY PROCEDURE, WILL MONITOR BLOOD PRESSURE PRIOR TO ADMINISTRATION OF HS LOPRESSOR. DRESSING IN PLACE TO RIGHT HIP, CDI AT THIS TIME. DOMINGUEZ CATH REMAINS IN PLACE, DRAINING CLEAR YELLOW URINE TO GRAVITY, PLAN TO DC IN AM PER PROTOCOL.
--- NOTE | 2019-10-22 03:27 | NUR ---
PT TRANSFER FROM ICU. AAOX4. PT REPORTING CHRONIC DISCOMFORT TO BACK, MINIMIZED WITH REPOSITIONING TO LEFT SIDE. DRESSING TO RIGHT HIP C/D/I. NO ACUTE CHANGES FROM PREVIOUS ASSESSMENT. PT ORIENTED TO ROOM + CALL LIGHT USE. CALL LIGHT WITHIN REACH.
--- NOTE | 2019-10-22 04:10 | NUR ---
RECEIVED REPORT FROM ELIZABETH LYNN. PT RESTING COMFORTABLY ON LEFT SIDE WITH EYES CLOSED. SHE AROUSES EASILY, RESPONDS APPROPRIATELY.
[2019-10-22 04:43] LABS: Hematocrit 20.9 % (33.0-51.0); Hemoglobin 6.9 g/dL (11.5-16.0); Mean Corpuscular HGB 31.8 pg (26.0-34.0); Mean Corpuscular Volume 96 fL (80-100); Mean Platelet Volume 11.5 fL (9.1-12.4); NRBC ABSOLUTE 0.04 K/mm3 (0.00-0.02); NRBC Auto 0.4 /100 WBC (0.0-0.2); Platelet Count 305 K/mm3 (150-400); RDW Coefficient Variation 19.3 % (11.7-14.2); RDW Standard Deviation 63.1 fL (35.1-46.3); Red Blood Cell Count 2.17 M/mm3 (3.80-5.20); White Blood Cell Count 10.02 K/mm3 (4.00-11.30)
[2019-10-22 04:59] LABS: Albumin, Blood 2.1 g/dL (3.4-5.0); Anion Gap 7 mmol/L (6-16); Blood Urea Nitrogen 38 mg/dL (8-24); Bun/Creatinine Ratio 33.6 (12.0-20.0); CO2, Blood 27 mmol/L (21-32); Calcium, Blood 8.3 mg/dL (8.5-10.1); Chloride, Blood 108 mmol/L (98-108); Creatinine, Blood 1.13 mg/dL (0.40-1.00); Glomerular Filtration Rate 49 (60-); Glucose, Blood 96 mg/dL (70-99); Phosphorus, Blood 3.4 mg/dL (2.5-4.9); Potassium, Blood 3.7 mmol/L (3.5-5.5); Sodium, Blood 142 mmol/L (136-145)
--- NOTE | 2019-10-22 05:00 | NUR ---
HEMOGLOBIN 6.[address] MAGALLANES NOTIFIED, STATES IS PLACING ORDERS FOR 2 UNITS OF BLOOD.
[2019-10-22 05:34] LABS: BASOPHILS ABSOLUTE AUTO 0.01 K/mm3 (0.00-0.23); BASOPHILS PERCENT AUTO 0 % (0-2); EOSINOPHILS ABSOLUTE AUTO 0.06 K/mm3 (0.00-0.68); EOSINOPHILS PERCENT AUTO 1 % (0-6); Hematocrit 20.6 % (33.0-51.0); Hemoglobin 6.6 g/dL (11.5-16.0); IMMATURE GRAN ABSOLUTE AUTO 0.13 K/mm3 (0.00-0.10); IMMATURE GRAN PERCENT AUTO 1 % (0-1); LYMPHOCYTES ABSOLUTE AUTO 0.99 K/mm3 (0.84-5.20); LYMPHOCYTES PERCENT AUTO 11 % (21-46); MONOCYTES ABSOLUTE AUTO 0.68 K/mm3 (0.16-1.47); MONOCYTES PERCENT AUTO 7 % (4-13); Mean Corpuscular Volume 97 fL (80-100); Mean Platelet Volume 11.4 fL (9.1-12.4); NEUTROPHILS ABSOLUTE AUTO 7.54 K/mm3 (1.96-9.15); NEUTROPHILS PERCENT AUTO 80 % (41-73); NRBC ABSOLUTE 0.06 K/mm3 (0.00-0.02); NRBC Auto 0.6 /100 WBC (0.0-0.2); Platelet Count 292 K/mm3 (150-400); RDW Coefficient Variation 19.3 % (11.7-14.2); RDW Standard Deviation 63.2 fL (35.1-46.3); Red Blood Cell Count 2.13 M/mm3 (3.80-5.20); White Blood Cell Count 9.41 K/mm3 (4.00-11.30)
--- NOTE | 2019-10-22 13:19 | NUR ---
10/21/2019 Pt. gave this hand sign writer permission to be involved in her care on 10/23/2019 as a student nurse.
[2019-10-22 16:47] LABS: Hematocrit 28.3 % (33.0-51.0); Hemoglobin 9.3 g/dL (11.5-16.0)
--- NOTE | 2019-10-22 17:49 | NUR ---
SUMMARY TOLERATED 2 UNITS PRBC WELL, LUNGS CLEAR BILAT. POST TRANSFUSION, ATTMEPTED TO ASSIST PT OOB THIS AFTERNOON BUT WAS ONLY BLE TO STAND, DR. KAPLAN STATE SHE WILL SEE PT TOMORROW, PT/OT EVAL TOMORROW, RLE CONT. TO BE SWOLLEN WITH MULTIPLE ECCHYMOSIS T/O RLE, ABD AND ARMS, PT TOLERATING REGULAR FOOD, DENIES ANY NAUSEA OR ANY ABD DISCOMFOR, STARTED ON REGULAR DIET THIS AFTERNOON, DENIED ANY DIZZINESS OR LIGHTHEADEDNESS WHEN UP, NO ACUTE CHANGES THIS SHIFT.
--- NOTE | 2019-10-23 06:03 | NUR ---
SHIFT SUMMARY: PT WITHOUT ANY ACUTE CHANGES OVER NIGHT. DR. WATSON IN TO SEE PATIENT IN BEGINNING OF SHIFT. PT COMPLAINED OF 6/10 PAIN TO RLE ONCE. GIVEN 1 TAB OF PERCOCET WHICH WAS EFFECTIVE. DOMINGUEZ DRAINING DARK YELLOW URINE. PT ENCOURAGED TO INCREASE FLUID INTAKE. PT REPOSITIONED PRN THROUGHOUT SHIFT. PLAN FOR PHYSICAL THERAPY AND OT TODAY. ORDER TO REMOVE AQUACEL DRESSINGS AND LEAVE INCISION CONCERT MANAGER. VS WNL T/O SHIFT.
[2019-10-23 06:18] LABS: Stool Occult Blood Guaiac 1 Neg (Neg)
[2019-10-23 09:39] LABS: Hematocrit 29.4 % (33.0-51.0); Hemoglobin 9.4 g/dL (11.5-16.0)
--- NOTE | 2019-10-23 16:36 | NUR ---
Permission given on 10/23/2019 by patient for Merly PRADO to assist with care on 10/24/2019
--- NOTE | 2019-10-23 18:34 | NUR ---
SUMMARY OOB TO RECLINER CHAIR MOST OF THE DAY, 2-3 PERSON MAX ASSIST, MEDICATED FOR PAIN ONCE THIS AM, 2 JOSELINE HIDALGO BM'S TODAY, WORKED W/ PT/OT, NO ACUTE CHANGES THIS SHIFT.
--- NOTE | 2019-10-23 18:51 | NUR ---
ALBERTO JAIN AT 1630 THIS AFTERNOON.
[2019-10-23 21:01] LABS: Hematocrit 28.5 % (33.0-51.0); Hemoglobin 9.1 g/dL (11.5-16.0)
--- NOTE | 2019-10-24 05:22 | NUR ---
SHIFT SUMMARY: PT HAS HAD A DIFFICULT TIME VOIDING IN BEDPAN SINCE REMOVAL OF DOMINGUEZ CATHTER YESTERDAY. PT VOIDED ONCE IN ATTENDS. BLADDER SCANNED THROUGHOUT SHIFT. ALL SCANS WITH <300ML OF URINE. PT AGAIN, ENCOURAGED TO INCREASE FLUID INTAKE. 2-3 MAX ASSIST FOR ALL TRANSFERS. H&H STABLE. NO OTHER CHANGES. PLAN FOR PT/OT AND FOR PT TO DISCHARGE BACK TO SNF.
[2019-10-24 06:26] LABS: Hematocrit 27.7 % (33.0-51.0); Hemoglobin 8.8 g/dL (11.5-16.0); Mean Corpuscular HGB 30.3 pg (26.0-34.0); Mean Corpuscular HGB Conc 31.8 g/dL (31.5-36.5); Mean Corpuscular Volume 96 fL (80-100); Mean Platelet Volume 11.3 fL (9.1-12.4); Platelet Count 346 K/mm3 (150-400); RDW Coefficient Variation 18.2 % (11.7-14.2); RDW Standard Deviation 57.5 fL (35.1-46.3); White Blood Cell Count 9.99 K/mm3 (4.00-11.30)
[2019-10-24 06:39] LABS: International Normalized Ratio 1.09; Prothrombin Time Results 11.6 Sec (9.7-11.5)
--- NOTE | 2019-10-24 07:10 | NUR ---
PT REPORT RECEIVED FROM CANDI JOHNSON. ASSUMED PT CARE. PT RESTING IN POSITION OF COMFORT.
--- NOTE | 2019-10-24 08:00 | NUR ---
ASSESSMENT CHARTED. VSS.
--- NOTE | 2019-10-24 08:34 | NUR ---
PT MEDICATED WITH SCHED MEDS, PT EATING BREAKFAST. DENIES PAIN. CALL LIGHT IN REACH.
--- NOTE | 2019-10-24 13:25 | NUR ---
PT ASSISTED UP TO BSC, NEW PULLUP PLACED, NEW PANTS PROVIDED BY FAMILY. POWER GLIDE FROM KENDRICK REMOVED TIP INTACT. DRESSING PLACED.
--- NOTE | 2019-10-24 13:40 | NUR ---
PT DRESSED, ASSISTED INTO WC FOR TX BACK TO NURSING
--- NOTE | 2019-10-24 14:15 | NUR ---
[facility]
== END 2019-10-24 13:42 | DRG 812 ==
LOC: ER 11:22 → ICUW 15:49 → SURS 10-22 03:05
PROVIDERS: Emergency Medicine; Family Medicine; Internal Medicine; Internal Medicine Gastroenterology; Nurse Practitioner Acute Care; ADMIT Internal Medicine
PROC: 30233K1 Transfusion of Nonautologous Frozen Plasma into Peripheral Vein, Percutaneous Approach (ICD-10-PCS; principal; 2019-10-19)
PROC: 30233N1 Transfusion of Nonautologous Red Blood Cells into Peripheral Vein, Percutaneous Approach (ICD-10-PCS; 2019-10-19)
PROC: 0DJ08ZZ Inspection of Upper Intestinal Tract, Via Natural or Artificial Opening Endoscopic (ICD-10-PCS; 2019-10-20)
PROC: 0D5K8ZZ Destruction of Ascending Colon, Via Natural or Artificial Opening Endoscopic (ICD-10-PCS; 2019-10-21)
PROC: 0W3P8ZZ Control Bleeding in Gastrointestinal Tract, Via Natural or Artificial Opening Endoscopic (ICD-10-PCS; 2019-10-21)
DX: D62 Acute posthemorrhagic anemia (principal); Z86.73 Personal history of transient ischemic attack (TIA), and cerebral infarction without residual deficits; Z79.01 Long term (current) use of anticoagulants; E78.00 Pure hypercholesterolemia, unspecified; Z95.1 Presence of aortocoronary bypass graft; Z95.2 Presence of prosthetic heart valve; E03.9 Hypothyroidism, unspecified; M10.9 Gout, unspecified; Z95.0 Presence of cardiac pacemaker; N18.3 Chronic kidney disease, stage 3 (moderate); K44.9 Diaphragmatic hernia without obstruction or gangrene; K22.2 Esophageal obstruction; K63.5 Polyp of colon; K64.8 Other hemorrhoids; I48.0 Paroxysmal atrial fibrillation; R79.1 Abnormal coagulation profile
CPT/HCPCS: 36415; 36430; 51702; 71045; 72192; 80053; 80069; 81001; 82272; 82330; 82607; 82728; 82746; 83010; 83540; 83550; 83605; 83615; 83735; 84145; 84484; 85014; 85018; 85025; 85027; 85045; 85384; 85610; 85730; 86850; 86900; 86901; 86920; 86923; 87040; 87086; 88305; 93005; 93010; 93970; 96361-59; 96374-59; 97110; 97162; 97166; 97530; 97535; 99285-25; A9270; C1751; J0171; J0456; J0696; J1200; J2250; J2704; J2765; J3010; J3430; J7030; J7050; J7120; P9016; P9059

== ENCOUNTER → 2020-10-14 | Outpatient (CLI) | payer MEDICARE, OTHER ==
[~2020-10-14] MED LIST changes: +BACL10 PO; +CELECOXIB200 MG PO; +LOVENOX100 MG/1 M SC; +OXYC5 PO; +POTCHL20ER PO
[2020-10-14 15:24] LABS: BASOPHILS ABSOLUTE AUTO 0.02 K/mm3 (0.00-0.23); BASOPHILS PERCENT AUTO 0 % (0-2); EOSINOPHILS ABSOLUTE AUTO 0.01 K/mm3 (0.00-0.68); EOSINOPHILS PERCENT AUTO 0 % (0-6); Hematocrit 29.9 % (33.0-51.0); Hemoglobin 8.7 g/dL (11.5-16.0); IMMATURE GRAN ABSOLUTE AUTO 0.01 K/mm3 (0.00-0.10); IMMATURE GRAN PERCENT AUTO 0 % (0-1); LYMPHOCYTES ABSOLUTE AUTO 1.35 K/mm3 (0.84-5.20); LYMPHOCYTES PERCENT AUTO 29 % (21-46); MONOCYTES ABSOLUTE AUTO 0.46 K/mm3 (0.16-1.47); MONOCYTES PERCENT AUTO 10 % (4-13); Mean Corpuscular HGB 31.6 pg (26.0-34.0); Mean Corpuscular HGB Conc 29.1 g/dL (31.5-36.5); Mean Corpuscular Volume 109 fL (80-100); Mean Platelet Volume 12.9 fL (9.1-12.4); NEUTROPHILS ABSOLUTE AUTO 2.75 K/mm3 (1.96-9.15); NEUTROPHILS PERCENT AUTO 60 % (41-73); Platelet Count 325 K/mm3 (150-400); RDW Coefficient Variation 18.4 % (11.7-14.2); RDW Standard Deviation 71.5 fL (35.1-46.3); Red Blood Cell Count 2.75 M/mm3 (3.80-5.20)
== END | disposition home or self-care (01) ==
LOC: LAB 11:20 → LAB SHORT 11:20
PROVIDERS: Internal Medicine Hematology & Oncology
DX: N18.30 Chronic kidney disease, stage 3 unspecified (principal); D46.9 Myelodysplastic syndrome, unspecified
CPT/HCPCS: 85025

== ENCOUNTER → 2021-07-21 | Outpatient (CLI) | payer MEDICARE, OTHER ==
[2021-07-21 15:52] LABS: Albumin, Blood 3.8 g/dL (3.4-5.0); Bilirubin, Total 0.7 mg/dL (0.1-1.0); Bun/Creatinine Ratio 28.5 (12.0-20.0); Calcium, Blood 8.8 mg/dL (8.5-10.1); Creatinine, Blood 1.44 mg/dL (0.40-1.00); Globulin, Blood 3.7 g/dL (2.2-4.0); Phosphorus, Blood 3.8 mg/dL (2.5-4.9); Potassium, Blood 5.8 mmol/L (3.5-5.5); Total Protein, Blood 7.5 g/dL (6.4-8.2)
== END | disposition home or self-care (01) ==
LOC: LAB 14:25 → LAB SHORT 14:25
PROVIDERS: Internal Medicine Hematology & Oncology
DX: D46.1 Refractory anemia with ring sideroblasts (principal); D63.8 Anemia in other chronic diseases classified elsewhere
CPT/HCPCS: 80053; 84100

== ENCOUNTER 2023-05-04 15:25 | Emergency (ER) | payer MEDICARE, OTHER ==
[~2023-05-04] VITALS: Ht 152.4 cm; Wt 59.4 kg
[2023-05-04 15:57] LABS: BASOPHILS ABSOLUTE AUTO 0.04 K/mm3 (0.00-0.23); BASOPHILS PERCENT AUTO 0 % (0-2); EOSINOPHILS PERCENT AUTO 0 % (0-6); IMMATURE GRAN ABSOLUTE AUTO 0.11 K/mm3 (0.00-0.10); IMMATURE GRAN PERCENT AUTO 1 % (0-1); LYMPHOCYTES ABSOLUTE AUTO 1.17 K/mm3 (0.84-5.20); LYMPHOCYTES PERCENT AUTO 10 % (21-46); MONOCYTES ABSOLUTE AUTO 1.27 K/mm3 (0.16-1.47); MONOCYTES PERCENT AUTO 11 % (4-13); Mean Corpuscular HGB 32.5 pg (26.0-34.0); Mean Corpuscular HGB Conc 30.8 g/dL (31.5-36.5); Mean Corpuscular Volume 106 fL (80-100); NEUTROPHILS ABSOLUTE AUTO 8.66 K/mm3 (1.96-9.15); NEUTROPHILS PERCENT AUTO 77 % (41-73); NRBC Auto 0.9 /100 WBC (0.0-0.2); Platelet Count 496 K/mm3 (150-400); RDW Coefficient Variation 22.9 % (11.7-14.2); RDW Standard Deviation 84.2 fL (35.1-46.3); Red Blood Cell Count 2.46 M/mm3 (3.80-5.20); White Blood Cell Count 11.25 K/mm3 (4.00-11.30)
[2023-05-04 16:06] LABS: Mean Platelet Volume 13.2 fL (9.1-12.4)
[2023-05-04 16:14] LABS: Albumin, Blood 3.4 g/dL (3.4-5.0); Albumin/Globulin Ratio 0.8 (0.8-1.8); Bilirubin, Total 0.9 mg/dL (0.1-1.0); Bun/Creatinine Ratio 31.7 (12.0-20.0); Calcium, Blood 8.6 mg/dL (8.5-10.1); Creatinine, Blood 1.26 mg/dL (0.40-1.00); Potassium, Blood 4.3 mmol/L (3.5-5.5); Total Protein, Blood 7.4 g/dL (6.4-8.2)
[2023-05-04 19:15] VITALS: BP 130/75
== END 2023-05-04 20:53 | disposition home or self-care (01) ==
LOC: ER 15:25
PROVIDERS: Physician Assistant
DX: I11.0 Hypertensive heart disease with heart failure (principal); I50.9 Heart failure, unspecified; R53.83 Other fatigue; D64.9 Anemia, unspecified; E78.00 Pure hypercholesterolemia, unspecified; I48.91 Unspecified atrial fibrillation; J45.909 Unspecified asthma, uncomplicated
CPT/HCPCS: 71046; 80053; 83880; 84484; 85025; 93005; 93010; 99284-25

== ENCOUNTER 2023-05-19 17:13 | Emergency (ER) | payer MEDICARE, OTHER ==
[~2023-05-19] VITALS: Ht 152.4 cm; Wt 61.2 kg
[~2023-05-19 17:13] MED LIST changes: +HYDROCODONE-AC1 EA10 PO; +METO25ER PO
[2023-05-19 18:32] LABS: Hemoglobin 9.9 g/dL (11.5-16.0); Mean Corpuscular HGB 33.8 pg (26.0-34.0); Mean Corpuscular HGB Conc 31.9 g/dL (31.5-36.5); Mean Corpuscular Volume 106 fL (80-100); Platelet Count 295 K/mm3 (150-400); RDW Coefficient Variation 21.7 % (11.7-14.2); RDW Standard Deviation 79.7 fL (35.1-46.3); Red Blood Cell Count 2.93 M/mm3 (3.80-5.20)
[2023-05-19 18:51] LABS: Albumin, Blood 3.6 g/dL (3.4-5.0); Albumin/Globulin Ratio 0.9 (0.8-1.8); Bilirubin, Total 1.1 mg/dL (0.1-1.0); Bun/Creatinine Ratio 29.9 (12.0-20.0); Calcium, Blood 8.8 mg/dL (8.5-10.1); Creatinine, Blood 1.47 mg/dL (0.40-1.00); Globulin, Blood 4.1 g/dL (2.2-4.0); Total Protein, Blood 7.7 g/dL (6.4-8.2)
[2023-05-19 19:16] LABS: BASOPHILS ABSOLUTE AUTO 0.04 K/mm3 (0.00-0.23); BASOPHILS PERCENT AUTO 0 % (0-2); EOSINOPHILS ABSOLUTE AUTO 0.01 K/mm3 (0.00-0.68); EOSINOPHILS PERCENT AUTO 0 % (0-6); IMMATURE GRAN ABSOLUTE AUTO 0.14 K/mm3 (0.00-0.10); IMMATURE GRAN PERCENT AUTO 1 % (0-1); LYMPHOCYTES ABSOLUTE AUTO 1.12 K/mm3 (0.84-5.20); LYMPHOCYTES PERCENT AUTO 9 % (21-46); MONOCYTES ABSOLUTE AUTO 0.57 K/mm3 (0.16-1.47); MONOCYTES PERCENT AUTO 5 % (4-13); Mean Platelet Volume 13.8 fL (9.1-12.4); NEUTROPHILS ABSOLUTE AUTO 10.09 K/mm3 (1.96-9.15); NEUTROPHILS PERCENT AUTO 84 % (41-73); NRBC ABSOLUTE 0.02 K/mm3 (0.00-0.02); NRBC Auto 0.2 /100 WBC (0.0-0.2); White Blood Cell Count 11.97 K/mm3 (4.00-11.30)
[2023-05-19 22:04] LABS: Bun/Creatinine Ratio 35.2 (12.0-20.0); Calcium, Blood 8.7 mg/dL (8.5-10.1); Creatinine, Blood 1.22 mg/dL (0.40-1.00); Potassium, Blood 5.8 mmol/L (3.5-5.5)
[2023-05-19 23:05] VITALS: BP 106/62
[2023-05-19] MEDS ORDERED: CEPH500 PO (23:10)
== END 2023-05-19 23:13 | disposition home or self-care (01) ==
LOC: ER 17:13
PROVIDERS: Emergency Medicine; Physician Assistant
DX: L03.116 Cellulitis of left lower limb (principal); Z88.0 Allergy status to penicillin; Z88.5 Allergy status to narcotic agent; Z79.899 Other long term (current) drug therapy; Z79.01 Long term (current) use of anticoagulants; I10 Essential (primary) hypertension; I48.91 Unspecified atrial fibrillation; J45.909 Unspecified asthma, uncomplicated
CPT/HCPCS: 80048; 80053; 85025; 87081; 87430; 93005; 93010; 94640; 94664; 96361; 96365; 99283-25; A9270; J0696; J7120